=== PATIENT | male | born 1995 | race Hispanic/Latino ===

== ENCOUNTER 2018-08-18 16:59 | Emergency (ER) | payer SELFPAY ==
[2018-08-18 17:01] VITALS: BP 108/81; TEMP 96.8
[2018-08-18] MEDS ORDERED: Phenylephrine 0.5% Nasal Spray NAS STA (17:24)
--- NOTE | 2018-08-18 17:27 | ED PDOC ---
HPI: Psych/Substance Abuse Time Seen by Provider: 08/18/18 17:25 Chief Complaint (Nursing): Alcohol Ingestion Chief Complaint (Provider): epistaxis/etoh History Per: Patient (23 y/o male here for [employer] [facility] in [place] noted with nosebleed and brought to ED for evaluation. Patient also admits alcohol ingestion today. Denies any head injury/abdominal injury.) Past Medical History Reviewed: Historical Data, Nursing Documentation, Vital Signs Vital Signs: Last Vital Signs Temp 96.8 F L 08/18/18 17:00 Pulse 110 H 08/18/18 17:00 Resp 16 08/18/18 17:00 BP 108/81 08/18/18 17:00 Pulse Ox 100 08/18/18 17:00 - Family History Family History: States: No Known Family Hx - Allergies Allergies/Adverse Reactions: Allergies Allergy/AdvReac Type Severity Reaction Status Date / Time No Known Allergies Allergy Verified 08/18/18 17:01 Review of Systems ROS Statement: Except As Marked, All Systems Reviewed And Found Negative ENT: Positive for: Other (epistaxis) Physical Exam - Reviewed Nursing Documentation Reviewed: Yes Vital Signs Reviewed: Yes - Physical Exam Appears: Positive for: Well, Non-toxic, No Acute Distress Head Exam: Positive for: ATRAUMATIC, NORMAL INSPECTION, NORMOCEPHALIC Skin: Positive for: Normal Color, Warm, DRY Eye Exam: Positive for: EOMI, Normal appearance, PERRL ENT: Positive for: Other (left nare with epistaxis). Negative for: Normal ENT Inspection Neck: Positive for: Normal, Painless ROM Cardiovascular/Chest: Positive for: Regular Rate, Rhythm Respiratory: Positive for: CNT, Normal Breath Sounds Gastrointestinal/Abdominal: Positive for: Normal Exam, Soft Back: Positive for: Normal Inspection Extremity: Positive for: Normal ROM Neurologic/Psych: Positive for: Alert, Oriented - ECG O2 Sat by Pulse Oximetry: 100 - Progress ED Course And Treament: Neosynephrine 0.5% applied to left nare. Observed x 20 minutes Disposition - Clinical Impression Clinical Impression: Epistaxis, Alcohol ingestion - Patient ED Disposition Is Patient to be Admitted: No - Disposition Disposition: Routine/Home Disposition Time: 17:27 Condition: FAIR Instructions: Nosebleeds, Alcohol Poisoning, Nosebleeds (DC)
[2018-08-18 18:03] VITALS: PULSE 99; RESP 18; O2SAT 98
== END 2018-08-18 18:02 | disposition home or self-care (01) ==
LOC: H.ER 16:59
DX: R04.0 Epistaxis (principal); F10.10 Alcohol abuse, uncomplicated